=== PATIENT | female | born 1960 | race Caucasian/White ===

== ENCOUNTER 2017-04-17 20:28 | Inpatient (IN) | payer OTHER ==
[~2017-04-17] VITALS: Ht 167.6 cm; Wt 78.8 kg
--- NOTE | ~2017-04-17 | EKG ---
[address] [address] ELECTROCARDIOGRAM REPORT Name: LEONA GUADALUPE Room #: 356-P [facility] IN M.R.#: [id number] Admission: 04/17/17 Attend Phys: Naif Rivas Discharge: Date of : 60 Report #: [id number] THIS REPORT FOR: //name// [facility] Test Date: 2017-04-17 Test Time: 20:54:46 Pat Name: LEONA GUADALUPE Department: Room: 356 Gender: F Cycle Analyst: CARLOS : 1960 Requested By: Catarina García Order Number: [id number] MD: Angel Torre Measurements Intervals Britton Rate: 70 P: 68 NH: 164 QRS: 64 QRSD: 95 T: 56 QT: 376 QTc: 406 Interpretive Statements Sinus rhythm Left atrial enlargement Compared to ECG 03/14/2012 14:59:07 Sinus arrhythmia no longer present Electronically Signed On 04-18-2017 7:46:21 INSTRUCTION ASSISTANT PRINCIPAL by Agnel Torre [email or web address] <ELECTRONICALLY SIGNED> By: Angel Torre MD 04/18/17745 53 53 Angel Torre MD /SHEN
--- NOTE | ~2017-04-17 | HC ---
[facility] [place] [address] CONSULTATION Name: LEONA GUADALUPE Room #: 356-P [facility]..#: [id number] Admission: 04/17/17 Attend Phys: Naif Rivas Discharge: 04/18/17 Date of : 60 Report #: [id number] THIS REPORT FOR: //name// CC: Sai Houser Naif Rivas DATE OF SERVICE: 04/18/2017 HISTORY OF PRESENT ILLNESS: This is a 57-year-old female patient who was admitted with an episode yesterday. The episode consisted of numbness and incoordination in the right hand as well as speech difficulty. She did have some symptoms on the opposite side also. Symptoms lasted about few minutes and they resolved by itself. There was no associated trauma with it. She never had this kind of symptoms before. REVIEW OF SYSTEMS: Indicate that the patient smokes about 1 pack per day. She is not on any antiplatelet therapy. Her cholesterol is pretty high when she is here. She does not know what her last cholesterol was. She does not have any other traditional risk factors. I carried out rest of the 14-point review of system and that was mostly unremarkable. She is not on any hormones and her menopause was about 10 years ago and she has no surgery or any clips or metal in her body. PAST MEDICAL HISTORY: Negative for stroke or cardiac problem. FAMILY HISTORY: Negative for early age stroke. SOCIAL HISTORY: She smokes. PHYSICAL EXAMINATION: The patient's examinations indicate she is alert. She is responsive. She can follow simple commands. She is oriented. Her speech, concentration, fund of knowledge and memory is at her baseline. Cranial nerve examination 2-12 is unremarkable. She has a symmetrical strength, sensation, reflexes and tone in all 4 extremities. There is no cerebellar sign. I could not look at the patient's fundus. There is no meningeal sign. There is no carotid bruit. There is no thyroid mass. She is a well-developed individual whose hearing and vision is adequate. Her pulses are palpable. She has no edema, cyanosis, or jaundice. Cardiac examination showed unremarkable heart sound and there is no murmur or atrial fibrillation. Respiratory examination showed no respiratory difficulty or rhonchi. Her vital signs indicate a blood pressure of 115/78, respirations 16, pulse is , and temperature is 97.6. LABORATORY DATA: Her white count is 10. She has significant dyslipidemia with LDL of 126 and HDL of only 28. IMPRESSION: [facility] [address] [place] [address] CONSULTATION Name: ANAYELILEONA Nader Room #: 356-P [facility]#: [id number] Admission: 04/17/17 Attend Phys: Naif Rivas Discharge: 04/18/17 Date of : 60 Report #: [id number] 1. The patient's symptom was probably secondary to transient ischemic attacks caused by vasospasm, so rather than any blockage in the blood vessels. 2. She has no prior history of migraine, so I suspect this vasospasm is because of smoking and other vascular risk factor may be. 3. Significant dyslipidemia. 4. Significant nicotine use. RECOMMENDATIONS: 1. MRI of the brain. 2. Echocardiogram. 3. Aspirin. 4. Statin. 5. Modifying vascular risk factors including stopping the nicotine and doing exercise on a regular basis and dietary restrictions. 6. If her echocardiogram and MRI is normal, for which there is a good chance, she can be dismissed later on today from neurological perspective. She does also need stress management because that may be contributing to her symptoms. Thank you very much for this referral and please let me know if further followup is needed in this patient. <ELECTRONICALLY SIGNED> By: Willy Lunsford MD 04/19/17 0731 [id number] Willy Lunsford MD /nt
--- NOTE | ~2017-04-17 | 2DMMODE ---
[facility] [address] [place] [address] 2 D/M-MODE ECHOCARDIOGRAM Name: LEONA GUADALUPE Room #: 356-P [facility] IN M.R.#: [id number] Admission: 04/17/17 Attend Phys: Naif Ramírez Discharge: Date of : 60 Date of Service: 04/18/17 1004 Report #: [id number] THIS REPORT FOR: //name// APPROVED REPORT Study performed: 04/18/2017 09:17:29 EXAM: Comprehensive 2D, Doppler, and color-flow Echocardiogram Patient Location: Echo lab Room #: [facility] Status: routine BSA: 1.88 HR: 50 bpm BP: 136/70 mmHg Rhythm: NSR Other Information Study Quality: Good Indications TIA. Echo Enhancing Agent Indication: Rule out Shunt Agent(s) / Amount(s) Used: Agitated Saline 6 cc Agitated Saline 6 cc 2D Dimensions RVDd: 37.11 mm LVEF(%): 57.60 (>50%) IVSd: 8.45 (7-11mm) LVOT Diam: 21.31 (18-24mm) LVDd: 49.96 mm PWd: 9.09 (7-11mm) LVDs: 34.76 (25-40mm) Aortic Root: 33.13 mm Fernandez's LVEF: 57.60 % Volumes Left Atrial Volume (Systole) Single Plane 4CH: 36.46 mL Single Plane 2CH: 49.78 mL LA ESV Index: 25.00 mL/m2 Aortic Valve AoV Peak Toby.: 1.52 m/s AO Peak Gr.: 9.19 mmHg LVOT Max P.06 mmHg LVOT Max V: 1.12 m/s [facility] [place] [address] 2 D/M-MODE ECHOCARDIOGRAM Name: LEONA GUADALUPE Room #: 356-P [facility] IN ..#: [id number] Admission: 04/17/17 Attend Phys: Naif Ramírez Discharge: Date of : 60 Date of Service: 04/18/17 1004 Report #: [id number] ERENDIRA Vmax: 2.64 cm2 Mitral Valve E/A Ratio: 1.4 MV Decel. Time: 168.85 ms MV E Max Toby.: 0.89 m/s MV A Toby.: 0.64 m/s MV PHT: 48.97 ms IVRT: 87.66 ms Pulmonary Valve PV Peak Toby.: 1.03 m/s PV Peak Gr.: 4.27 mmHg Pulmonary Vein P Vein S: 0.68 m/s P Vein A: 0.39 m/s P Vein D: 0.58 m/s P Vein A Dur.: 124.6 msec P Vein S/D Ratio: 1.17 Tricuspid Valve TR Peak Toby.: 2.52 m/s RAP Estimate: 5.00 mmHg TR Peak Gr.: 25.33 mmHg PA Pressure: 30.00 mmHg Left Ventricle The left ventricle is normal size. There is normal LV segmental wall motion. There is normal left ventricular wall thickness. Left ventricular systolic function is normal. LVEF is 55-60%. The left ventricular diastolic function is normal. Right Ventricle The right ventricle is normal size. The right ventricular systolic function is normal. Atria The left atrium size is normal. Minimal right to left shunting on contrast bubble injection consistent with patent foramen ovale The right atrium size is normal. Aortic Valve Aortic valve leaflets are mildly thickened. No aortic regurgitation is present. There is no aortic valvular stenosis. Mitral Valve The mitral valve is normal in structure. Trace to mild mitral regurgitation. [address] [address] 2 D/M-MODE ECHOCARDIOGRAM Name: LEONA GUADALUPE Room #: 356-P [facility] IN [facility]#: [id number] Admission: 04/17/17 Attend Phys: Naif Ramírez Discharge: Date of : 60 Date of Service: 04/18/17 1004 Report #: [id number] Tricuspid Valve The tricuspid valve is normal in structure. Trace to mild tricuspid regurgitation. Estimated PAP is 30mmHg. Pulmonic Valve The pulmonary valve is normal in structure. There is no pulmonic valvular regurgitation. Great Vessels The aortic root is normal in size. Ascending aorta is not well visualized. IVC is normal in size and collapses >50% with inspiration. Pericardium There is no pericardial effusion. <Conclusion> Left ventricular systolic function is normal. There is normal LV segmental wall motion. LVEF is 55-60%. Normal diastolic function Minimal right to left shunting on contrast bubble injection consistent with patent foramen ovale Aortic valve leaflets are mildly thickened. No aortic regurgitation or stenosis The mitral valve is normal in structure. Trace to mild mitral regurgitation. Trace to mild tricuspid regurgitation. Estimated pulmonary artery pressure of 30mmHg. There is no pericardial effusion. <ELECTRONICALLY SIGNED> By: Garcia Gilman MD, FACC 04/18/17 1004 100 1004 Garcia Gilman MD, FACC /INF
[~2017-04-17 20:28] MED LIST: ASPIRIN EC325 M1 PO
[2017-04-17 20:33] VITALS: BP 118/81
[2017-04-17] MEDS ORDERED: NOHOMEMEDICATIONS (20:49)
[2017-04-17 20:55] LABS: ABSOLUTE NEUTROPHILS 4.5 thou/uL (1.4-8.2); BASOPHILS 0.9 % (0.0-2.0); EOSINOPHILS 1.4 % (0.0-3.0); HEMATOCRIT 39.3 % (37.0-47.0); HEMOGLOBIN 13.7 gm/dL (12.0-15.0); LYMPHOCYTES 45.6 % (24.0-44.0); MCH 30.9 pg (26.0-34.0); MCHC 34.8 g/dL (28.0-37.0); MCV 88.6 fL (80.0-100.0); MONOCYTES 7.3 % (1.0-8.0); PLATELET COUNT 255 thou/uL (150-400); POLYS 44.8 % (36.0-66.0); RBC 4.43 mil/uL (4.20-5.00); RDW 13.8 % (10.5-14.5)
[2017-04-17 21:03] LABS: CALCIUM 9.2 mg/dL (8.5-10.1); CREATININE 1.2 mg/dL (0.6-1.0); POTASSIUM 3.8 mmol/L (3.5-5.1)
[2017-04-17] MEDS ORDERED: ASPIRIN81 M2 PO (21:12)
[2017-04-17 22:06] VITALS: BP 137/89
[2017-04-17 22:29] VITALS: BP 135/82
[2017-04-17 22:40] VITALS: BP 130/77
[2017-04-17 22:55] VITALS: BP 130/77
[2017-04-18 04:15] VITALS: BP 115/78
[2017-04-18 04:33] LABS: CHOLESTEROL 186 mg/dL (<200); HDL CHOLESTEROL 28 mg/dL (>40); LDL CHOLESTEROL 126 mg/dL (<100); TC:HDL 6.6 Ratio (Not establshd); TRIGLYCERIDE 161 mg/dL (<150); VLDL 32 mg/dL (<40)
[2017-04-18 04:37] LABS: SERUM ASSESSMENT Clear
[2017-04-18 04:56] LABS: TSH 2.476 uIU/mL (0.358-3.740)
[2017-04-18 07:55] VITALS: BP 136/70
[2017-04-18] MEDS ORDERED: ASPIR 8181 MG PO (13:00)
[2017-04-18] MEDS ORDERED: CRESTOR5 MG PO (13:00)
[2017-04-18 13:26] VITALS: BP 136/70
== END 2017-04-18 14:13 | disposition home or self-care (01) | DRG 69 ==
LOC: ER 20:28 → 3W 21:52 → EROBS 21:52 → 3W 22:26
PROVIDERS: Emergency Medicine; Nurse Practitioner
DX: G45.9 Transient cerebral ischemic attack, unspecified (principal); R20.2 Paresthesia of skin; E78.5 Hyperlipidemia, unspecified; F17.210 Nicotine dependence, cigarettes, uncomplicated; Z82.49 Family history of ischemic heart disease and other diseases of the circulatory system; Z83.3 Family history of diabetes mellitus; Z82.3 Family history of stroke; Z88.8 Allergy status to other drugs, medicaments and biological substances
CPT/HCPCS: 10779